=== PATIENT | male | born 1955 | race Caucasian/White ===

== ENCOUNTER 2020-10-26 11:02 | Inpatient (IN) | payer OTHER, MEDICARE ==
[2020-10-26 12:00] LABS: INR-International Normal Ratio 1.4; PTT 36.9 sec (22.9-36.1); Prothrombin Time 17.5 sec (12.0-14.7)
[2020-10-26 12:30] LABS: Troponin I 0.448 ng/mL (< 0.028)
[2020-10-26] MEDS ORDERED: HumaLOG 300 UNITS/3 ML VIAL SC PRN (12:45)
[2020-10-26] MEDS ORDERED: Guaifenesin DM 100-10/5 ML UDCUP PO PRN (12:45)
[2020-10-26] MEDS ORDERED: Dextrose 50% Abboject 50 ML SYRINGE SLOW IVP PRN (12:45)
[2020-10-26] MEDS ORDERED: Acetaminophen 325 MG TAB PO PRN (12:45)
[2020-10-26] MEDS ORDERED: Senokot S 8.6-50 MG TAB PO PRN (12:45)
[2020-10-26] MEDS ORDERED: Ondansetron PF 4 MG/2 ML Vial IVP PRN (12:45)
[2020-10-26] MEDS ORDERED: Calcium Carbonate 500 MG ChewTAB PO PRN (12:45)
[2020-10-26] MEDS ORDERED: Dextrose 5% in Water 1,000 ML IV PRN (12:45)
[2020-10-26] MEDS ORDERED: Enoxaparin Sodium 40 MG/0.4 ML SYRINGE SC SCH (12:45)
[2020-10-26] MEDS ORDERED: Bisacodyl 10 MG SUPP PR PRN (12:45)
[2020-10-26] MEDS ORDERED: Iopamidol-370 76% 500 ML 1 ML ONE (12:50)
[2020-10-26 12:59] LABS: Anion Gap 20 mmol/L (10-20); BUN (Urea Nitrogen) 15 mg/dL (8.4-25.7); Calc. Creatinine Clearance 131 mL/min (70-130); Carbon Dioxide 21 mmol/L (23-31); Chloride 101 mmol/L (98-107); Glucose 177 mg/dL (80-115); Sodium 138 mmol/L (136-145)
[2020-10-26] MEDS ORDERED: REMDESIVIR (EUA) 200 MG in Sodium Chloride 0.9% 250 ML 210 ML IV SCH (13:00)
[2020-10-26 13:29] LABS: ALT (SGPT) 28 U/L (8-55); AST (SGOT) 41 U/L (5-34); Albumin 3.4 g/dL (3.4-4.8); Alkaline Phosphatase 138 U/L (40-110); Anion Gap 18 mmol/L (10-20); BUN (Urea Nitrogen) 16 mg/dL (8.4-25.7); Bilirubin, Total 0.9 mg/dL (0.2-1.2); Calc. Creatinine Clearance 140 mL/min (70-130); Calcium 9.1 mg/dL (7.8-10.44); Carbon Dioxide 21 mmol/L (23-31); Chloride 100 mmol/L (98-107); Globulin 3.8 g/dL (2.4-3.5); Glucose 186 mg/dL (80-115); Potassium 3.9 mmol/L (3.5-5.1); Protein, Total 7.2 g/dL (5.8-8.1); Sodium 135 mmol/L (136-145)
[2020-10-26] MEDS ORDERED: cefTRIAXone\\ROCEPHIN 2 GM VIAL ONE (13:29)
[2020-10-26] MEDS ORDERED: Enoxaparin Sodium 100 MG/ML SYRINGE ONE (13:29)
[2020-10-26 13:40] LABS: CRP (Inflammatory) 31.82 mg/dL (= or < 0.5)
[2020-10-26 16:34] LABS: Lactic Acid 2.3 mmol/L (0.5-2.2)
[2020-10-26] MEDS: Albuterol 200 PUFF (6.7GM INHALER) INH SCH (17:28)
[2020-10-26] MEDS: Atorvastatin Calcium 40 MG TAB PO SCH (20:08)
[2020-10-26] MEDS: Metoprolol Tartrate 25 MG TAB PO SCH (20:08)
[2020-10-26] MEDS: Enoxaparin Sodium 100 MG/ML SYRINGE SC SCH (20:09)
[2020-10-26] MEDS: Lantus 1000 UNITS/10 ML VIAL SC SCH (21:24)
[2020-10-27] MEDS: Albuterol 200 PUFF (6.7GM INHALER) INH SCH ×4 (01:00→19:00)
[2020-10-27 04:13] LABS: #Monocytes 1.2 thou/uL (0.11-0.59); #Neutrophils 14.4 thou/uL (1.40-6.50); %Eosinophils 0.3 % (0.0-10.0); %Lymphocytes 5.9 % (21.0-51.0); %Monocytes 7.1 % (0.0-10.0); %Neutrophils 86.7 % (42.0-75.0); Mean Corpuscular HGB CONC 32.6 g/dL (32.0-36.0); Mean Corpuscular Hemoglobin 29.4 pg (27.0-31.0); Mean Corpuscular Volume 90.1 fL (78.0-98.0); Mean Platelet Volume 9.1 fL (7.4-10.4); Platelet Count 183 thou/uL (130-400); RBC Distribution Width 12.9 % (11.5-14.5); Red Blood Cell (RBC) Count 4.44 mill/uL (4.70-6.10); White Blood Cell (WBC) Count 16.6 thou/uL (4.8-10.8)
[2020-10-27 04:31] LABS: Anion Gap 14 mmol/L (10-20); BUN (Urea Nitrogen) 21 mg/dL (8.4-25.7); Calc. Creatinine Clearance 155 mL/min (70-130); Calcium 8.5 mg/dL (7.8-10.44); Carbon Dioxide 26 mmol/L (23-31); Chloride 103 mmol/L (98-107); Glucose 148 mg/dL (80-115); Sodium 139 mmol/L (136-145)
[2020-10-27 04:34] LABS: ALT (SGPT) 32 U/L (8-55); AST (SGOT) 42 U/L (5-34); Albumin 2.8 g/dL (3.4-4.8); Alkaline Phosphatase 111 U/L (40-110); Bilirubin, Direct 0.3 mg/dL (0.1-0.3); Bilirubin, Total 0.5 mg/dL (0.2-1.2); Protein, Total 6.1 g/dL (5.8-8.1)
[2020-10-27] MEDS: Aspirin Chewable 81 MG TAB PO SCH (09:45)
[2020-10-27] MEDS: Enoxaparin Sodium 100 MG/ML SYRINGE SC SCH ×2 (09:46→20:18)
[2020-10-27] MEDS: Metoprolol Tartrate 25 MG TAB PO SCH ×2 (09:46→20:18)
[2020-10-27] MEDS: Dexamethasone 10 MG in Sodium Chloride 0.9% 50 ML IVPB SCH (09:50)
[2020-10-27] MEDS: HumaLOG 300 UNITS/3 ML VIAL SC PRN ×2 (12:18→16:51)
[2020-10-27] MEDS ORDERED: REMDESIVIR (EUA) 100 MG in Sodium Chloride 0.9% 250 ML 230 ML IV SCH (13:00)
[2020-10-27] MEDS ORDERED: Ascorbic Acid 500 mg Chewable Tablet PO SCH (15:00)
[2020-10-27] MEDS ORDERED: Zinc Sulfate 220 MG CAP PO SCH (15:00)
[2020-10-27] MEDS: Atorvastatin Calcium 40 MG TAB PO SCH (20:18)
[2020-10-27] MEDS: Lantus 1000 UNITS/10 ML VIAL SC SCH (20:36)
[2020-10-28] MEDS: Albuterol 200 PUFF (6.7GM INHALER) INH SCH ×4 (01:10→19:10)
[2020-10-28 03:45] LABS: #Eosinphils 0.1 thou/uL (0.0-0.7); #Lymphocytes 1.2 thou/uL (1.20-3.40); #Monocytes 1.3 thou/uL (0.11-0.59); #Neutrophils 17.3 thou/uL (1.40-6.50); %Basophils 0.1 % (0.0-1.0); %Eosinophils 0.3 % (0.0-10.0); %Lymphocytes 5.9 % (21.0-51.0); %Monocytes 6.4 % (0.0-10.0); %Neutrophils 87.4 % (42.0-75.0); Hemoglobin 12.5 g/dL (14.0-18.0); Mean Corpuscular HGB CONC 33.4 g/dL (32.0-36.0); Mean Platelet Volume 8.7 fL (7.4-10.4); Platelet Count 238 thou/uL (130-400); RBC Distribution Width 12.5 % (11.5-14.5); Red Blood Cell (RBC) Count 4.18 mill/uL (4.70-6.10); White Blood Cell (WBC) Count 19.8 thou/uL (4.8-10.8)
[2020-10-28 04:05] LABS: ALT (SGPT) 31 U/L (8-55); AST (SGOT) 37 U/L (5-34); Albumin 2.8 g/dL (3.4-4.8); Alkaline Phosphatase 111 U/L (40-110); Anion Gap 14 mmol/L (10-20); BUN (Urea Nitrogen) 20 mg/dL (8.4-25.7); Bilirubin, Direct 0.2 mg/dL (0.1-0.3); Bilirubin, Total 0.5 mg/dL (0.2-1.2); Calc. Creatinine Clearance 161 mL/min (70-130); Calcium 8.4 mg/dL (7.8-10.44); Carbon Dioxide 25 mmol/L (23-31); Chloride 102 mmol/L (98-107); Glucose 134 mg/dL (80-115); Potassium 3.9 mmol/L (3.5-5.1); Protein, Total 5.7 g/dL (5.8-8.1); Sodium 137 mmol/L (136-145)
[2020-10-28 05:15] LABS: Ferritin 693.66 ng/mL (22-322); Free T4 (Free Thyroxine) 1.08 ng/dL (0.70-1.48)
[2020-10-28] MEDS: Metoprolol Tartrate 25 MG TAB PO SCH ×2 (08:32→20:15)
[2020-10-28] MEDS: Zinc Sulfate 220 MG CAP PO SCH (08:32)
[2020-10-28] MEDS: Aspirin Chewable 81 MG TAB PO SCH (08:32)
[2020-10-28] MEDS: Ascorbic Acid 500 mg Chewable Tablet PO SCH (08:32)
[2020-10-28] MEDS: Enoxaparin Sodium 100 MG/ML SYRINGE SC SCH ×2 (08:35→20:15)
[2020-10-28] MEDS: Dexamethasone 10 MG in Sodium Chloride 0.9% 50 ML IVPB SCH (09:04)
[2020-10-28] MEDS: Atorvastatin Calcium 40 MG TAB PO SCH (20:15)
[2020-10-28] MEDS: Lantus 1000 UNITS/10 ML VIAL SC SCH (20:16)
[2020-10-29] MEDS: Albuterol 200 PUFF (6.7GM INHALER) INH SCH ×4 (00:14→19:41)
[2020-10-29 05:51] LABS: #Eosinphils 0.1 thou/uL (0.0-0.7); #Lymphocytes 1.4 thou/uL (1.20-3.40); #Monocytes 1.1 thou/uL (0.11-0.59); %Eosinophils 0.6 % (0.0-10.0); %Lymphocytes 8.3 % (21.0-51.0); %Monocytes 6.6 % (0.0-10.0); %Neutrophils 84.5 % (42.0-75.0); Hemoglobin 12.7 g/dL (14.0-18.0); Mean Corpuscular HGB CONC 33.6 g/dL (32.0-36.0); Mean Corpuscular Hemoglobin 30.2 pg (27.0-31.0); Mean Corpuscular Volume 90.1 fL (78.0-98.0); Mean Platelet Volume 9.2 fL (7.4-10.4); Platelet Count 255 thou/uL (130-400); RBC Distribution Width 12.5 % (11.5-14.5); White Blood Cell (WBC) Count 16.6 thou/uL (4.8-10.8)
[2020-10-29 05:52] LABS: ALT (SGPT) 30 U/L (8-55); AST (SGOT) 37 U/L (5-34); Albumin 2.7 g/dL (3.4-4.8); Alkaline Phosphatase 111 U/L (40-110); Anion Gap 14 mmol/L (10-20); BUN (Urea Nitrogen) 19 mg/dL (8.4-25.7); Bilirubin, Direct 0.2 mg/dL (0.1-0.3); Bilirubin, Total 0.4 mg/dL (0.2-1.2); Calc. Creatinine Clearance 153 mL/min (70-130); Calcium 8.2 mg/dL (7.8-10.44); Carbon Dioxide 23 mmol/L (23-31); Chloride 104 mmol/L (98-107); Glucose 100 mg/dL (80-115); Potassium 3.8 mmol/L (3.5-5.1); Protein, Total 5.5 g/dL (5.8-8.1); Sodium 137 mmol/L (136-145)
[2020-10-29] MEDS: Enoxaparin Sodium 100 MG/ML SYRINGE SC SCH ×2 (09:30→21:39)
[2020-10-29] MEDS: Dexamethasone 10 MG in Sodium Chloride 0.9% 50 ML IVPB SCH (09:31)
[2020-10-29] MEDS: Aspirin Chewable 81 MG TAB PO SCH (09:31)
[2020-10-29] MEDS: Ascorbic Acid 500 mg Chewable Tablet PO SCH (09:31)
[2020-10-29] MEDS: Zinc Sulfate 220 MG CAP PO SCH (09:31)
[2020-10-29] MEDS: Metoprolol Tartrate 25 MG TAB PO SCH ×2 (09:31→21:40)
[2020-10-29] MEDS ORDERED: Ivermectin 3 MG TAB PO SCH (11:15)
[2020-10-29] MEDS: METHYLPREDNISOLONE SOD SUCC IVPB SCH (12:46)
[2020-10-29] MEDS: SODIUM CHLORIDE 0.9% IVPB SCH (12:46)
[2020-10-29] MEDS: Cholecalciferol 1,000 UNITS (25 MCG) TAB PO SCH (21:39)
[2020-10-29] MEDS: Atorvastatin Calcium 40 MG TAB PO SCH (21:40)
[2020-10-29] MEDS: Melatonin 3 MG TAB PO SCH (21:40)
[2020-10-29] MEDS: Lantus 1000 UNITS/10 ML VIAL SC SCH (23:02)
[2020-10-30] MEDS: Albuterol 200 PUFF (6.7GM INHALER) INH SCH ×4 (01:48→20:04)
[2020-10-30 05:49] LABS: #Eosinphils 0.1 thou/uL (0.0-0.7); #Monocytes 0.8 thou/uL (0.11-0.59); %Basophils 0.2 % (0.0-1.0); %Eosinophils 0.3 % (0.0-10.0); %Monocytes 4.3 % (0.0-10.0); %Neutrophils 90.2 % (42.0-75.0); Mean Corpuscular Hemoglobin 30.1 pg (27.0-31.0); Mean Corpuscular Volume 88.6 fL (78.0-98.0); Mean Platelet Volume 8.2 fL (7.4-10.4); Platelet Count 291 thou/uL (130-400); RBC Distribution Width 12.6 % (11.5-14.5); Red Blood Cell (RBC) Count 4.33 mill/uL (4.70-6.10); White Blood Cell (WBC) Count 18.9 thou/uL (4.8-10.8)
[2020-10-30 06:11] LABS: ALT (SGPT) 53 U/L (8-55); AST (SGOT) 49 U/L (5-34); Albumin 2.8 g/dL (3.4-4.8); Alkaline Phosphatase 119 U/L (40-110); Anion Gap 12 mmol/L (10-20); BUN (Urea Nitrogen) 17 mg/dL (8.4-25.7); Bilirubin, Direct 0.2 mg/dL (0.1-0.3); Bilirubin, Total 0.4 mg/dL (0.2-1.2); Calc. Creatinine Clearance 166 mL/min (70-130); Calcium 8.1 mg/dL (7.8-10.44); Carbon Dioxide 25 mmol/L (23-31); Chloride 105 mmol/L (98-107); Glucose 140 mg/dL (80-115); Potassium 4.6 mmol/L (3.5-5.1); Protein, Total 5.5 g/dL (5.8-8.1); Sodium 137 mmol/L (136-145)
[2020-10-30] MEDS: Aspirin Chewable 81 MG TAB PO SCH (09:31)
[2020-10-30] MEDS: Zinc Sulfate 220 MG CAP PO SCH (09:31)
[2020-10-30] MEDS: Metoprolol Tartrate 25 MG TAB PO SCH ×2 (09:32→20:06)
[2020-10-30] MEDS: Ascorbic Acid 500 mg Chewable Tablet PO SCH (09:32)
[2020-10-30] MEDS: Thiamine 100 MG TAB PO SCH (09:32)
[2020-10-30] MEDS: Ivermectin 3 MG TAB PO SCH (09:32)
[2020-10-30] MEDS: Enoxaparin Sodium 100 MG/ML SYRINGE SC SCH ×2 (09:32→20:07)
[2020-10-30] MEDS: METHYLPREDNISOLONE SOD SUCC IVPB SCH (12:39)
[2020-10-30] MEDS: SODIUM CHLORIDE 0.9% IVPB SCH (12:39)
[2020-10-30] MEDS: Cholecalciferol 1,000 UNITS (25 MCG) TAB PO SCH (20:05)
[2020-10-30] MEDS: Melatonin 3 MG TAB PO SCH (20:05)
[2020-10-30] MEDS: Atorvastatin Calcium 40 MG TAB PO SCH (20:06)
[2020-10-30] MEDS: Lantus 1000 UNITS/10 ML VIAL SC SCH (20:45)
[2020-10-31] MEDS: Albuterol 200 PUFF (6.7GM INHALER) INH SCH ×3 (00:35→21:21)
[2020-10-31 04:26] LABS: Anion Gap 12 mmol/L (10-20); BUN (Urea Nitrogen) 17 mg/dL (8.4-25.7); Calc. Creatinine Clearance 165 mL/min (70-130); Calcium 8.3 mg/dL (7.8-10.44); Carbon Dioxide 23 mmol/L (23-31); Chloride 105 mmol/L (98-107); Glucose 132 mg/dL (80-115); Potassium 4.5 mmol/L (3.5-5.1); Sodium 135 mmol/L (136-145)
[2020-10-31 05:09] LABS: Band 4 % (5-11); Hemoglobin 13.1 g/dL (14.0-18.0); Lymphocytes 5 % (21-51); MDiff Complete? YES; Mean Corpuscular Hemoglobin 28.8 pg (27.0-31.0); Mean Corpuscular Volume 90.1 fL (78.0-98.0); Mean Platelet Volume 8.3 fL (7.4-10.4); Monocytes 4 % (0-10); Neutrophil 87 % (42-75); Platelet Count 350 thou/uL (130-400); RBC Distribution Width 12.9 % (11.5-14.5); RBC Morphology Normal; Red Blood Cell (RBC) Count 4.53 mill/uL (4.70-6.10); White Blood Cell (WBC) Count 22.7 thou/uL (4.8-10.8)
[2020-10-31] MEDS: Zinc Sulfate 220 MG CAP PO SCH (08:35)
[2020-10-31] MEDS: Thiamine 100 MG TAB PO SCH (08:35)
[2020-10-31] MEDS: Enoxaparin Sodium 100 MG/ML SYRINGE SC SCH ×2 (08:35→20:58)
[2020-10-31] MEDS: Ivermectin 3 MG TAB PO SCH (08:35)
[2020-10-31] MEDS: METHYLPREDNISOLONE SOD SUCC IVPB SCH (08:35)
[2020-10-31] MEDS: Aspirin Chewable 81 MG TAB PO SCH (08:35)
[2020-10-31] MEDS: SODIUM CHLORIDE 0.9% IVPB SCH (08:35)
[2020-10-31] MEDS: Ascorbic Acid 500 mg Chewable Tablet PO SCH (08:35)
[2020-10-31] MEDS: Metoprolol Tartrate 25 MG TAB PO SCH ×2 (08:36→20:59)
[2020-10-31] MEDS: HumaLOG 300 UNITS/3 ML VIAL SC PRN ×2 (12:05→17:07)
[2020-10-31] MEDS: Atorvastatin Calcium 40 MG TAB PO SCH (20:58)
[2020-10-31] MEDS: Melatonin 3 MG TAB PO SCH (20:58)
[2020-10-31] MEDS: Cholecalciferol 1,000 UNITS (25 MCG) TAB PO SCH (20:58)
[2020-10-31] MEDS: Lantus 1000 UNITS/10 ML VIAL SC SCH (20:58)
[2020-11-01] MEDS: Albuterol 200 PUFF (6.7GM INHALER) INH SCH ×5 (02:00→20:31)
[2020-11-01] MEDS: Thiamine 100 MG TAB PO SCH (08:56)
[2020-11-01] MEDS: Aspirin Chewable 81 MG TAB PO SCH (08:56)
[2020-11-01] MEDS: Ascorbic Acid 500 mg Chewable Tablet PO SCH (08:56)
[2020-11-01] MEDS: Zinc Sulfate 220 MG CAP PO SCH (08:56)
[2020-11-01] MEDS: Metoprolol Tartrate 25 MG TAB PO SCH ×2 (08:57→09:57)
[2020-11-01] MEDS: Enoxaparin Sodium 100 MG/ML SYRINGE SC SCH ×2 (08:57→20:29)
[2020-11-01] MEDS: Ivermectin 3 MG TAB PO SCH (08:57)
[2020-11-01] MEDS: SODIUM CHLORIDE 0.9% IVPB SCH (08:58)
[2020-11-01] MEDS: METHYLPREDNISOLONE SOD SUCC IVPB SCH (08:58)
[2020-11-01] MEDS: Melatonin 3 MG TAB PO SCH (20:30)
[2020-11-01] MEDS: Cholecalciferol 1,000 UNITS (25 MCG) TAB PO SCH (20:30)
[2020-11-01] MEDS: Lantus 1000 UNITS/10 ML VIAL SC SCH (20:30)
[2020-11-01] MEDS: Atorvastatin Calcium 40 MG TAB PO SCH (20:30)
[2020-11-02] MEDS: Albuterol 200 PUFF (6.7GM INHALER) INH SCH ×4 (01:47→21:40)
[2020-11-02 03:45] LABS: #Lymphocytes 0.9 thou/uL (1.20-3.40); #Monocytes 0.9 thou/uL (0.11-0.59); #Neutrophils 19.3 thou/uL (1.40-6.50); %Basophils 0.2 % (0.0-1.0); %Eosinophils 0.2 % (0.0-10.0); %Lymphocytes 4.2 % (21.0-51.0); %Monocytes 4.4 % (0.0-10.0); %Neutrophils 90.9 % (42.0-75.0); Hemoglobin 13.8 g/dL (14.0-18.0); Mean Corpuscular HGB CONC 32.4 g/dL (32.0-36.0); Mean Corpuscular Hemoglobin 29.3 pg (27.0-31.0); Mean Corpuscular Volume 90.3 fL (78.0-98.0); Mean Platelet Volume 7.9 fL (7.4-10.4); Platelet Count 388 thou/uL (130-400); RBC Distribution Width 13.1 % (11.5-14.5); Red Blood Cell (RBC) Count 4.71 mill/uL (4.70-6.10); White Blood Cell (WBC) Count 21.2 thou/uL (4.8-10.8)
[2020-11-02 04:10] LABS: Anion Gap 13 mmol/L (10-20); BUN (Urea Nitrogen) 16 mg/dL (8.4-25.7); CRP (Inflammatory) Less than 0.50 mg/dL (= or < 0.5); Calc. Creatinine Clearance 160 mL/min (70-130); Calcium 8.2 mg/dL (7.8-10.44); Carbon Dioxide 23 mmol/L (23-31); Chloride 105 mmol/L (98-107); Glucose 137 mg/dL (80-115); Potassium 4.6 mmol/L (3.5-5.1); Sodium 136 mmol/L (136-145)
[2020-11-02] MEDS: Enoxaparin Sodium 100 MG/ML SYRINGE SC SCH ×2 (08:02→21:40)
[2020-11-02] MEDS: SODIUM CHLORIDE 0.9% IVPB SCH (08:02)
[2020-11-02] MEDS: Aspirin Chewable 81 MG TAB PO SCH (08:02)
[2020-11-02] MEDS: Thiamine 100 MG TAB PO SCH (08:02)
[2020-11-02] MEDS: Zinc Sulfate 220 MG CAP PO SCH (08:02)
[2020-11-02] MEDS: Ascorbic Acid 500 mg Chewable Tablet PO SCH (08:02)
[2020-11-02] MEDS: METHYLPREDNISOLONE SOD SUCC IVPB SCH (08:02)
[2020-11-02] MEDS: Ivermectin 3 MG TAB PO SCH (10:24)
[2020-11-02] MEDS: Melatonin 3 MG TAB PO SCH (21:39)
[2020-11-02] MEDS: Atorvastatin Calcium 40 MG TAB PO SCH (21:39)
[2020-11-02] MEDS: Cholecalciferol 1,000 UNITS (25 MCG) TAB PO SCH (21:40)
[2020-11-02] MEDS: Lantus 1000 UNITS/10 ML VIAL SC SCH (21:40)
[2020-11-03] MEDS: Albuterol 200 PUFF (6.7GM INHALER) INH SCH ×4 (00:20→18:27)
[2020-11-03] MEDS: Zinc Sulfate 220 MG CAP PO SCH (08:17)
[2020-11-03] MEDS: Thiamine 100 MG TAB PO SCH (08:17)
[2020-11-03] MEDS: Aspirin Chewable 81 MG TAB PO SCH (08:17)
[2020-11-03] MEDS: Ascorbic Acid 500 mg Chewable Tablet PO SCH (08:17)
[2020-11-03] MEDS: SODIUM CHLORIDE 0.9% IVPB SCH (08:18)
[2020-11-03] MEDS: METHYLPREDNISOLONE SOD SUCC IVPB SCH (08:18)
[2020-11-03] MEDS: Enoxaparin Sodium 100 MG/ML SYRINGE SC SCH ×2 (08:18→21:02)
[2020-11-03] MEDS: Ivermectin 3 MG TAB PO SCH (08:20)
[2020-11-03] MEDS: Atorvastatin Calcium 40 MG TAB PO SCH (21:01)
[2020-11-03] MEDS: Melatonin 3 MG TAB PO SCH (21:01)
[2020-11-03] MEDS: Cholecalciferol 1,000 UNITS (25 MCG) TAB PO SCH (21:01)
[2020-11-03] MEDS: Lantus 1000 UNITS/10 ML VIAL SC SCH (21:02)
[2020-11-04] MEDS: Albuterol 200 PUFF (6.7GM INHALER) INH SCH ×4 (03:39→20:55)
[2020-11-04] MEDS: SODIUM CHLORIDE 0.9% IVPB SCH (04:07)
[2020-11-04] MEDS: METHYLPREDNISOLONE SOD SUCC IVPB SCH (04:07)
[2020-11-04] MEDS: Thiamine 100 MG TAB PO SCH (09:36)
[2020-11-04] MEDS: Enoxaparin Sodium 100 MG/ML SYRINGE SC SCH ×2 (09:36→20:54)
[2020-11-04] MEDS: Aspirin Chewable 81 MG TAB PO SCH (09:36)
[2020-11-04] MEDS: Zinc Sulfate 220 MG CAP PO SCH (09:36)
[2020-11-04] MEDS: Ivermectin 3 MG TAB PO SCH (09:36)
[2020-11-04] MEDS: Ascorbic Acid 500 mg Chewable Tablet PO SCH (09:36)
[2020-11-04] MEDS: methylPREDNISolone Sod Succ 40 MG VIAL IVP SCH ×2 (18:32→23:16)
[2020-11-04] MEDS: Melatonin 3 MG TAB PO SCH (20:53)
[2020-11-04] MEDS: Atorvastatin Calcium 40 MG TAB PO SCH (20:54)
[2020-11-04] MEDS: Cholecalciferol 1,000 UNITS (25 MCG) TAB PO SCH (20:54)
[2020-11-04] MEDS: Lantus 1000 UNITS/10 ML VIAL SC SCH (23:15)
[2020-11-05] MEDS: Albuterol 200 PUFF (6.7GM INHALER) INH SCH ×4 (03:52→20:58)
[2020-11-05] MEDS: methylPREDNISolone Sod Succ 40 MG VIAL IVP SCH ×3 (06:07→16:49)
[2020-11-05] MEDS: Ivermectin 3 MG TAB PO SCH ×2 (08:32→09:41)
[2020-11-05] MEDS: Zinc Sulfate 220 MG CAP PO SCH (08:32)
[2020-11-05] MEDS: Aspirin Chewable 81 MG TAB PO SCH (08:32)
[2020-11-05] MEDS: Enoxaparin Sodium 100 MG/ML SYRINGE SC SCH (08:32)
[2020-11-05] MEDS: Thiamine 100 MG TAB PO SCH (08:32)
[2020-11-05] MEDS: Ascorbic Acid 500 mg Chewable Tablet PO SCH (08:32)
[2020-11-05 09:12] LABS: #Monocytes 1.2 thou/uL (0.11-0.59); #Neutrophils 16.7 thou/uL (1.40-6.50); %Basophils 0.1 % (0.0-1.0); %Eosinophils 0.2 % (0.0-10.0); %Lymphocytes 5.4 % (21.0-51.0); %Monocytes 6.1 % (0.0-10.0); %Neutrophils 88.3 % (42.0-75.0); Mean Corpuscular HGB CONC 31.7 g/dL (32.0-36.0); Mean Corpuscular Hemoglobin 28.9 pg (27.0-31.0); Mean Corpuscular Volume 91.2 fL (78.0-98.0); Mean Platelet Volume 7.8 fL (7.4-10.4); Platelet Count 433 thou/uL (130-400); RBC Distribution Width 13.3 % (11.5-14.5); Red Blood Cell (RBC) Count 5.53 mill/uL (4.70-6.10); White Blood Cell (WBC) Count 18.9 thou/uL (4.8-10.8)
[2020-11-05 09:59] LABS: Anion Gap 14 mmol/L (10-20); BUN (Urea Nitrogen) 20 mg/dL (8.4-25.7); Calc. Creatinine Clearance 123 mL/min (70-130); Calcium 8.6 mg/dL (7.8-10.44); Carbon Dioxide 23 mmol/L (23-31); Chloride 102 mmol/L (98-107); Glucose 186 mg/dL (80-115); Potassium 4.2 mmol/L (3.5-5.1); Sodium 135 mmol/L (136-145)
[2020-11-05] MEDS: Apixaban 5 MG TAB PO SCH (20:34)
[2020-11-05] MEDS: Atorvastatin Calcium 40 MG TAB PO SCH (20:34)
[2020-11-05] MEDS: Lantus 1000 UNITS/10 ML VIAL SC SCH (20:35)
[2020-11-05] MEDS: Melatonin 3 MG TAB PO SCH (20:35)
[2020-11-05] MEDS: Cholecalciferol 1,000 UNITS (25 MCG) TAB PO SCH (20:35)
[2020-11-06] MEDS: methylPREDNISolone Sod Succ 40 MG VIAL IVP SCH ×4 (00:23→18:13)
[2020-11-06] MEDS: Albuterol 200 PUFF (6.7GM INHALER) INH SCH ×4 (02:14→18:13)
[2020-11-06 05:42] LABS: Anion Gap 12 mmol/L (10-20); BUN (Urea Nitrogen) 21 mg/dL (8.4-25.7); Calc. Creatinine Clearance 144 mL/min (70-130); Calcium 8.3 mg/dL (7.8-10.44); Carbon Dioxide 24 mmol/L (23-31); Chloride 104 mmol/L (98-107); Glucose 120 mg/dL (80-115); Magnesium 2.3 mg/dL (1.6-2.6); Potassium 4.5 mmol/L (3.5-5.1); Sodium 135 mmol/L (136-145)
[2020-11-06] MEDS: Aspirin Chewable 81 MG TAB PO SCH (07:31)
[2020-11-06] MEDS: Zinc Sulfate 220 MG CAP PO SCH (07:31)
[2020-11-06] MEDS: Apixaban 5 MG TAB PO SCH ×2 (07:31→20:57)
[2020-11-06] MEDS: Thiamine 100 MG TAB PO SCH (07:32)
[2020-11-06] MEDS: Ascorbic Acid 500 mg Chewable Tablet PO SCH (07:32)
[2020-11-06] MEDS: Melatonin 3 MG TAB PO SCH (20:56)
[2020-11-06] MEDS: Atorvastatin Calcium 40 MG TAB PO SCH (20:56)
[2020-11-06] MEDS: Cholecalciferol 1,000 UNITS (25 MCG) TAB PO SCH (20:57)
[2020-11-06] MEDS: Lantus 1000 UNITS/10 ML VIAL SC SCH (20:57)
[2020-11-07] MEDS: methylPREDNISolone Sod Succ 40 MG VIAL IVP SCH ×4 (01:15→17:18)
[2020-11-07] MEDS: Albuterol 200 PUFF (6.7GM INHALER) INH SCH ×4 (01:15→18:29)
[2020-11-07 05:22] LABS: #Lymphocytes 0.6 thou/uL (1.20-3.40); #Monocytes 1.1 thou/uL (0.11-0.59); #Neutrophils 13.3 thou/uL (1.40-6.50); %Eosinophils 0.2 % (0.0-10.0); %Lymphocytes 4.2 % (21.0-51.0); %Neutrophils 88.6 % (42.0-75.0); Hemoglobin 14.4 g/dL (14.0-18.0); Mean Corpuscular HGB CONC 32.5 g/dL (32.0-36.0); Mean Corpuscular Hemoglobin 29.4 pg (27.0-31.0); Mean Corpuscular Volume 90.7 fL (78.0-98.0); Mean Platelet Volume 8.2 fL (7.4-10.4); Platelet Count 313 thou/uL (130-400); RBC Distribution Width 13.2 % (11.5-14.5); Red Blood Cell (RBC) Count 4.88 mill/uL (4.70-6.10)
[2020-11-07 05:49] LABS: Anion Gap 11 mmol/L (10-20); BUN (Urea Nitrogen) 22 mg/dL (8.4-25.7); Calc. Creatinine Clearance 147 mL/min (70-130); Calcium 8.2 mg/dL (7.8-10.44); Carbon Dioxide 25 mmol/L (23-31); Chloride 103 mmol/L (98-107); Glucose 138 mg/dL (80-115); Potassium 4.5 mmol/L (3.5-5.1); Sodium 134 mmol/L (136-145)
[2020-11-07] MEDS: Apixaban 5 MG TAB PO SCH ×2 (07:29→21:27)
[2020-11-07] MEDS: Aspirin Chewable 81 MG TAB PO SCH (07:30)
[2020-11-07] MEDS: Zinc Sulfate 220 MG CAP PO SCH (07:30)
[2020-11-07] MEDS: Thiamine 100 MG TAB PO SCH (07:30)
[2020-11-07] MEDS: Ascorbic Acid 500 mg Chewable Tablet PO SCH (07:30)
[2020-11-07] MEDS: HumaLOG 300 UNITS/3 ML VIAL SC PRN (17:15)
[2020-11-07] MEDS: Atorvastatin Calcium 40 MG TAB PO SCH (21:27)
[2020-11-07] MEDS: Cholecalciferol 1,000 UNITS (25 MCG) TAB PO SCH (21:27)
[2020-11-07] MEDS: Melatonin 3 MG TAB PO SCH (21:28)
[2020-11-07] MEDS: Lantus 1000 UNITS/10 ML VIAL SC SCH (21:31)
[2020-11-08] MEDS: Albuterol 200 PUFF (6.7GM INHALER) INH SCH ×4 (00:51→18:42)
[2020-11-08] MEDS: methylPREDNISolone Sod Succ 40 MG VIAL IVP SCH ×4 (00:51→18:42)
[2020-11-08] MEDS: Apixaban 5 MG TAB PO SCH ×2 (09:43→20:24)
[2020-11-08] MEDS: Aspirin Chewable 81 MG TAB PO SCH (09:43)
[2020-11-08] MEDS: Ascorbic Acid 500 mg Chewable Tablet PO SCH (09:44)
[2020-11-08] MEDS: Zinc Sulfate 220 MG CAP PO SCH (09:44)
[2020-11-08] MEDS: Thiamine 100 MG TAB PO SCH (09:44)
[2020-11-08] MEDS: HumaLOG 300 UNITS/3 ML VIAL SC PRN (09:45)
[2020-11-08] MEDS: Melatonin 3 MG TAB PO SCH (20:25)
[2020-11-08] MEDS: Atorvastatin Calcium 40 MG TAB PO SCH (20:25)
[2020-11-08] MEDS: Cholecalciferol 1,000 UNITS (25 MCG) TAB PO SCH (20:25)
[2020-11-08] MEDS: Lantus 1000 UNITS/10 ML VIAL SC SCH (21:11)
[2020-11-09] MEDS: methylPREDNISolone Sod Succ 40 MG VIAL IVP SCH ×5 (00:51→21:54)
[2020-11-09] MEDS: Albuterol 200 PUFF (6.7GM INHALER) INH SCH ×4 (00:51→18:12)
[2020-11-09 05:49] LABS: Anion Gap 10 mmol/L (10-20); BUN (Urea Nitrogen) 20 mg/dL (8.4-25.7); Calc. Creatinine Clearance 146 mL/min (70-130); Calcium 8.2 mg/dL (7.8-10.44); Carbon Dioxide 29 mmol/L (23-31); Chloride 102 mmol/L (98-107); Glucose 149 mg/dL (80-115); Magnesium 2.1 mg/dL (1.6-2.6); Potassium 4.5 mmol/L (3.5-5.1); Sodium 136 mmol/L (136-145)
[2020-11-09] MEDS: Zinc Sulfate 220 MG CAP PO SCH (08:08)
[2020-11-09] MEDS: Ascorbic Acid 500 mg Chewable Tablet PO SCH (08:08)
[2020-11-09] MEDS: Aspirin Chewable 81 MG TAB PO SCH (08:09)
[2020-11-09] MEDS: Apixaban 5 MG TAB PO SCH ×2 (08:09→21:52)
[2020-11-09] MEDS: Thiamine 100 MG TAB PO SCH (08:09)
[2020-11-09] MEDS: Cholecalciferol 1,000 UNITS (25 MCG) TAB PO SCH (21:51)
[2020-11-09] MEDS: Lantus 1000 UNITS/10 ML VIAL SC SCH (21:52)
[2020-11-09] MEDS: Atorvastatin Calcium 40 MG TAB PO SCH (21:52)
[2020-11-09] MEDS: Melatonin 3 MG TAB PO SCH (21:52)
[2020-11-10] MEDS: Albuterol 200 PUFF (6.7GM INHALER) INH SCH ×4 (01:04→19:00)
[2020-11-10] MEDS: methylPREDNISolone Sod Succ 40 MG VIAL IVP SCH ×2 (04:29→10:22)
[2020-11-10] MEDS: Thiamine 100 MG TAB PO SCH (10:20)
[2020-11-10] MEDS: Zinc Sulfate 220 MG CAP PO SCH (10:20)
[2020-11-10] MEDS: Aspirin Chewable 81 MG TAB PO SCH (10:20)
[2020-11-10] MEDS: Ascorbic Acid 500 mg Chewable Tablet PO SCH (10:20)
[2020-11-10] MEDS: Apixaban 5 MG TAB PO SCH ×2 (10:20→21:43)
[2020-11-10 16:02] LABS: #Lymphocytes 0.7 thou/uL (1.20-3.40); #Monocytes 1.3 thou/uL (0.11-0.59); #Neutrophils 15.9 thou/uL (1.40-6.50); %Eosinophils 0.1 % (0.0-10.0); %Lymphocytes 3.6 % (21.0-51.0); %Monocytes 7.5 % (0.0-10.0); %Neutrophils 88.7 % (42.0-75.0); Hemoglobin 15.2 g/dL (14.0-18.0); Mean Corpuscular HGB CONC 33.1 g/dL (32.0-36.0); Mean Corpuscular Hemoglobin 30.2 pg (27.0-31.0); Mean Corpuscular Volume 91.2 fL (78.0-98.0); Mean Platelet Volume 8.1 fL (7.4-10.4); Platelet Count 275 thou/uL (130-400); RBC Distribution Width 13.6 % (11.5-14.5); Red Blood Cell (RBC) Count 5.03 mill/uL (4.70-6.10)
[2020-11-10 16:22] LABS: Anion Gap 11 mmol/L (10-20); BUN (Urea Nitrogen) 22 mg/dL (8.4-25.7); Calc. Creatinine Clearance 133 mL/min (70-130); Calcium 8.4 mg/dL (7.8-10.44); Carbon Dioxide 26 mmol/L (23-31); Chloride 104 mmol/L (98-107); Glucose 185 mg/dL (80-115); Magnesium 2.1 mg/dL (1.6-2.6); Potassium 4.8 mmol/L (3.5-5.1); Sodium 136 mmol/L (136-145)
[2020-11-10] MEDS: Melatonin 3 MG TAB PO SCH (21:44)
[2020-11-10] MEDS: Cholecalciferol 1,000 UNITS (25 MCG) TAB PO SCH (21:44)
[2020-11-10] MEDS: Atorvastatin Calcium 40 MG TAB PO SCH (21:44)
[2020-11-10] MEDS: Lantus 1000 UNITS/10 ML VIAL SC SCH (21:46)
[2020-11-11] MEDS: Albuterol 200 PUFF (6.7GM INHALER) INH SCH ×4 (01:10→18:46)
[2020-11-11] MEDS: Dexamethasone 4 MG TAB PO SCH (09:19)
[2020-11-11] MEDS: Thiamine 100 MG TAB PO SCH (09:20)
[2020-11-11] MEDS: Aspirin Chewable 81 MG TAB PO SCH (09:20)
[2020-11-11] MEDS: Zinc Sulfate 220 MG CAP PO SCH (09:20)
[2020-11-11] MEDS: Apixaban 5 MG TAB PO SCH ×2 (09:20→20:35)
[2020-11-11] MEDS: Ascorbic Acid 500 mg Chewable Tablet PO SCH (09:21)
[2020-11-11 13:02] VITALS: BMI 30.4
[2020-11-11] MEDS: Melatonin 3 MG TAB PO SCH (20:36)
[2020-11-11] MEDS: Carvedilol 3.125 MG TAB PO SCH (20:37)
[2020-11-11] MEDS: Cholecalciferol 1,000 UNITS (25 MCG) TAB PO SCH (20:37)
[2020-11-11] MEDS: Atorvastatin Calcium 40 MG TAB PO SCH (20:38)
[2020-11-11] MEDS: Lantus 1000 UNITS/10 ML VIAL SC SCH (21:37)
[2020-11-12] MEDS: Albuterol 200 PUFF (6.7GM INHALER) INH SCH ×4 (01:46→19:24)
[2020-11-12 02:38] LABS: Anion Gap 11 mmol/L (10-20); BUN (Urea Nitrogen) 19 mg/dL (8.4-25.7); Calc. Creatinine Clearance 138 mL/min (70-130); Calcium 8.6 mg/dL (7.8-10.44); Carbon Dioxide 28 mmol/L (23-31); Chloride 102 mmol/L (98-107); Glucose 82 mg/dL (80-115); Potassium 4.5 mmol/L (3.5-5.1); Sodium 136 mmol/L (136-145)
[2020-11-12] MEDS: Ivermectin 3 MG TAB PO SCH (08:46)
[2020-11-12] MEDS: Aspirin Chewable 81 MG TAB PO SCH (08:46)
[2020-11-12] MEDS: Zinc Sulfate 220 MG CAP PO SCH (08:47)
[2020-11-12] MEDS: Thiamine 100 MG TAB PO SCH (08:47)
[2020-11-12] MEDS: Carvedilol 3.125 MG TAB PO SCH ×2 (08:47→21:25)
[2020-11-12] MEDS: Dexamethasone 4 MG TAB PO SCH (08:47)
[2020-11-12] MEDS: Apixaban 5 MG TAB PO SCH ×2 (08:47→21:25)
[2020-11-12] MEDS: Ascorbic Acid 500 mg Chewable Tablet PO SCH (08:47)
[2020-11-12] MEDS: Melatonin 3 MG TAB PO SCH (21:25)
[2020-11-12] MEDS: Atorvastatin Calcium 40 MG TAB PO SCH (21:25)
[2020-11-12] MEDS: Cholecalciferol 1,000 UNITS (25 MCG) TAB PO SCH (21:25)
[2020-11-12] MEDS: Lantus 1000 UNITS/10 ML VIAL SC SCH (21:25)
[2020-11-13] MEDS: Albuterol 200 PUFF (6.7GM INHALER) INH SCH ×4 (01:36→19:32)
[2020-11-13] MEDS: Apixaban 5 MG TAB PO SCH ×2 (07:35→21:10)
[2020-11-13] MEDS: Thiamine 100 MG TAB PO SCH (07:35)
[2020-11-13] MEDS: Ascorbic Acid 500 mg Chewable Tablet PO SCH (07:35)
[2020-11-13] MEDS: Aspirin Chewable 81 MG TAB PO SCH (07:35)
[2020-11-13] MEDS: Zinc Sulfate 220 MG CAP PO SCH (07:35)
[2020-11-13] MEDS: Dexamethasone 4 MG TAB PO SCH (07:36)
[2020-11-13] MEDS: Carvedilol 3.125 MG TAB PO SCH ×2 (07:36→21:10)
[2020-11-13] MEDS: Atorvastatin Calcium 40 MG TAB PO SCH (21:10)
[2020-11-13] MEDS: Melatonin 3 MG TAB PO SCH (21:11)
[2020-11-13] MEDS: Cholecalciferol 1,000 UNITS (25 MCG) TAB PO SCH (21:11)
[2020-11-13] MEDS: Lantus 1000 UNITS/10 ML VIAL SC SCH (21:12)
[2020-11-14] MEDS: Albuterol 200 PUFF (6.7GM INHALER) INH SCH ×3 (00:57→14:09)
[2020-11-14] MEDS: Aspirin Chewable 81 MG TAB PO SCH (07:19)
[2020-11-14] MEDS: Dexamethasone 4 MG TAB PO SCH (07:19)
[2020-11-14] MEDS: Zinc Sulfate 220 MG CAP PO SCH (07:19)
[2020-11-14] MEDS: Carvedilol 3.125 MG TAB PO SCH (07:19)
[2020-11-14] MEDS: Thiamine 100 MG TAB PO SCH (07:20)
[2020-11-14] MEDS: Ascorbic Acid 500 mg Chewable Tablet PO SCH (07:20)
[2020-11-14] MEDS: Apixaban 5 MG TAB PO SCH (07:26)
[2020-11-14 16:20] VITALS: BP 115/59; TEMP 97.4
== END 2020-11-14 18:25 | disposition home or self-care (01) | DRG 871 ==
LOC: ERS 11:02 → IMCU/EMU 12:03 → 2SW 11-05 13:22
PROVIDERS: ADMIT Internal Medicine; ATTEND Internal Medicine
PROC: XW033E5 Introduction of Remdesivir Anti-infective into Peripheral Vein, Percutaneous Approach, New Technology Group 5 (ICD-10-PCS; principal; 2020-10-26)
PROC: XW033H5 Introduction of Tocilizumab into Peripheral Vein, Percutaneous Approach, New Technology Group 5 (ICD-10-PCS; 2020-10-26)
PROC: 5A09357 Assistance with Respiratory Ventilation, Less than 24 Consecutive Hours, Continuous Positive Airway Pressure (ICD-10-PCS; 2020-10-26)
PROC: 5A0955A Assistance with Respiratory Ventilation, Greater than 96 Consecutive Hours, High Flow/Velocity Cannula (ICD-10-PCS; 2020-10-26)
PROC: 8E0ZXY6 Isolation (ICD-10-PCS; 2020-10-26)
DX: A41.89 Other specified sepsis (principal); U07.1 COVID-19; J96.01 Acute respiratory failure with hypoxia; J12.82 Pneumonia due to coronavirus disease 2019; I26.99 Other pulmonary embolism without acute cor pulmonale; I21.4 Non-ST elevation (NSTEMI) myocardial infarction; I42.2 Other hypertrophic cardiomyopathy; I47.2 Ventricular tachycardia; I50.20 Unspecified systolic (congestive) heart failure; E78.00 Pure hypercholesterolemia, unspecified; I25.10 Atherosclerotic heart disease of native coronary artery without angina pectoris; E78.5 Hyperlipidemia, unspecified; E11.65 Type 2 diabetes mellitus with hyperglycemia; T38.0X5A Adverse effect of glucocorticoids and synthetic analogues, initial encounter; E66.01 Morbid (severe) obesity due to excess calories; I11.0 Hypertensive heart disease with heart failure; R00.1 Bradycardia, unspecified; I95.9 Hypotension, unspecified; Z68.30 Body mass index [BMI] 30.0-30.9, adult; Z79.84 Long term (current) use of oral hypoglycemic drugs; Z90.49 Acquired absence of other specified parts of digestive tract; Z95.1 Presence of aortocoronary bypass graft; Z79.82 Long term (current) use of aspirin; Z98.890 Other specified postprocedural states; Z79.899 Other long term (current) drug therapy; Z86.79 Personal history of other diseases of the circulatory system; R65.20 Severe sepsis without septic shock
CPT/HCPCS: 36415; 36416; 71275; 80048; 80076; 82728; 83605; 83735; 84439; 84443; 84484; 85025; 85379; 85610; 85652; 85730; 86140; 93005; 93306; 94660; 96365; 96372; J0696; J1100; J1650; J1815; J2920; J2930; J3262; J3490; J7050; J8540; Q9967